=== PATIENT | female | born 2000 | race Hispanic/Latino ===

== ENCOUNTER 2024-06-17 12:34 | Inpatient (IN) | payer OTHER, SELFPAY ==
[2024-06-17 13:15] VITALS: BMI 26.2
[2024-06-17] MEDS ORDERED: Carboprost 250 MCG/ML AMP IM PRN (15:11)
[2024-06-17] MEDS ORDERED: fentaNYL 50 mcg/mL 1 mL Vial SLOW IVP PRN (15:11)
[2024-06-17] MEDS ORDERED: Acetaminophen 500 MG TAB PO PRN (15:11)
[2024-06-17] MEDS ORDERED: Ondansetron PF 4 MG/2 ML Vial IVP PRN ×2 (15:11→17:51)
[2024-06-17] MEDS ORDERED: hydrALAZINE 20 MG/ML VIAL SLOW IVP PRN (15:11)
[2024-06-17] MEDS ORDERED: Promethazine HCl 25 MG/ML VIAL IM PRN ×2 (15:11→17:51)
[2024-06-17] MEDS ORDERED: Misoprostol 200 MCG TAB PR PRN (15:11)
[2024-06-17] MEDS ORDERED: Diphenoxylate HCl/Atropine Tablet PO PRN (15:11)
[2024-06-17] MEDS ORDERED: Methylergonovine 0.2 MG/ML VIAL IM PRN (15:11)
[2024-06-17] MEDS ORDERED: HYDROcodone/Acetaminophen 5/325 mg Tablet PO PRN (15:13)
[2024-06-17] MEDS ORDERED: Lidocaine 1% (PF) 30 ML VIAL SC PRN (15:13)
[2024-06-17] MEDS ORDERED: Oxytocin 30 units/NS 500 ML 500 ML IV SCH (15:15)
[2024-06-17] MEDS ORDERED: Lactated Ringer's 1,000 ML IV SCH (15:15)
[2024-06-17 15:50] LABS: Hematocrit 36.4 % (34.9-44.5); Hemoglobin 12.7 g/dL (12.0-15.5); Mean Corpuscular HGB CONC 34.9 g/dL (32.0-36.0); Mean Corpuscular Hemoglobin 30.9 pg (27.0-33.0); Mean Corpuscular Volume 88.6 fL (81.6-98.3); Mean Platelet Volume 11.8 fL (7.4-10.4); Platelet Count 213 10x3/uL (150-450); RBC Distribution Width 12.7 % (11.5-14.5); Red Blood Cell (RBC) Count 4.11 10x6/uL (3.90-5.03); White Blood Cell (WBC) Count 10.5 10x3/uL (3.5-10.5)
[2024-06-17 16:22] LABS: HBsAg Index 0.18 S/CO (0-0.99); Hep B Surf Ag - L&D Non-Reactive S/CO (NonReactive)
[2024-06-17 16:23] LABS: Syphilis Antibody Nonreactive (Nonreactive); Syphilis Antibody Index 0.06 S/CO (<1.00 Non-Reactive)
[2024-06-17] MEDS: fentaNYL/Ropivacaine Epidural 100 ML ONE (17:27)
[2024-06-17] MEDS ORDERED: ePHEDrine Sulfate 50 MG/10 ML VIAL SLOW IVP PRN (17:51)
[2024-06-17] MEDS ORDERED: Lactated Ringer's 500 ML IV PRN (17:51)
[2024-06-17] MEDS ORDERED: diphenhydrAMINE 50 MG/ML VIAL IVP PRN (17:51)
[2024-06-17] MEDS ORDERED: Naloxone HCl 0.4 mg/ml Vial IVP PRN ×2 (17:51)
[2024-06-17] MEDS ORDERED: Moisturizing Cream (Eucerin) 113 GM JAR TOP PRN (17:51)
[2024-06-17] MEDS ORDERED: fentaNYL 2 mcg/Ropivacaine 0.2% Epidural 100 ML CADD EPIDURAL SCH (18:00)
[2024-06-17] MEDS ORDERED: Communication Order-Pharmacy FS SCH (18:00)
[2024-06-18] MEDS: Ibuprofen 800 MG TAB PO PRN (00:21)
[2024-06-18] MEDS: Acetaminophen 325 MG TAB PO PRN (00:21)
[2024-06-18 00:44] LABS: Bilirubin Neg (Negative); Blood, Urine 50 (Negative); Glucose, Urine (Dipstick) Normal (Negative); Ketone, Urine Negative (Negative); Leukocyte Negative (Negative); Nitrite Negative (Negative); Protein, Urine (Dipstick) 15 mg/dl (Neg-Trace); Urobilinogen Normal mg/dL (Less than 2)
[2024-06-18] MEDS ORDERED: Promethazine HCl 25 MG/ML VIAL IM PRN (00:44)
[2024-06-18] MEDS ORDERED: Bisacodyl 10 MG SUPP PR PRN (00:44)
[2024-06-18] MEDS ORDERED: hydrALAZINE 20 MG/ML VIAL SLOW IVP PRN (00:44)
[2024-06-18] MEDS ORDERED: Milk Of Magnesia 30 ML UDCUP PO PRN (00:44)
[2024-06-18] MEDS ORDERED: Ondansetron PF 4 MG/2 ML Vial IVP PRN (00:44)
[2024-06-18] MEDS ORDERED: diphenhydrAMINE 25 MG CAP PO PRN (00:44)
[2024-06-18] MEDS ORDERED: Boostrix 0.5 ML (Tdap) VIAL (>/=7 yrs of age) IM ONE (00:44)
[2024-06-18] MEDS ORDERED: Benzocaine-Menthol 82.5 ML CAN TOP PRN (00:44)
[2024-06-18] MEDS ORDERED: Lanolin Ointment 7 GM TUBE TOP PRN (00:44)
[2024-06-18 00:51] LABS: Clarity Clear (Clear)
[2024-06-18 00:52] LABS: CAUTI Indications for Culture Fever or rigors; Squamous Epithelial None Seen HPF (0-3); WBC/HPF 0-3 HPF (0-3)
[2024-06-18 00:53] LABS: Bacteria/HPF None Seen HPF (None Seen)
[2024-06-18 00:54] LABS: Urine Culture Reflex No No
[2024-06-18] MEDS: Tranexamic Acid 1,000 MG/10 ML VIAL ONE (05:51)
[2024-06-18] MEDS: Ferrous Sulfate 325 MG TAB PO SCH (08:09)
[2024-06-18] MEDS: Ibuprofen 800 MG TAB PO SCH (08:55)
[2024-06-18] MEDS: Prenatal Vitamin 1 TAB PO SCH (08:56)
[2024-06-18] MEDS: Docusate 100 MG CAP PO SCH (08:56)
[2024-06-18] MEDS: HYDROcodone/Acetaminophen 5/325 mg Tablet PO PRN (20:10)
[2024-06-19 08:14] VITALS: BP 109/58; TEMP 98
== END 2024-06-19 14:15 | disposition home or self-care (01) | DRG 807 ==
LOC: CSHLD/OP 12:34 → CSHLD 15:21 → CSHPED 06-18 00:50
PROVIDERS: ADMIT Family Medicine; ATTEND Family Medicine
PROC: 10E0XZZ Delivery of Products of Conception, External Approach (ICD-10-PCS; principal; 2024-06-17)
PROC: 0UQGXZZ Repair Vagina, External Approach (ICD-10-PCS; 2024-06-17)
PROC: 10907ZC Drainage of Amniotic Fluid, Therapeutic from Products of Conception, Via Natural or Artificial Opening (ICD-10-PCS; 2024-06-17)
DX: O70.0 First degree perineal laceration during delivery (principal); Z37.0 Single live birth; Z3A.38 38 weeks gestation of pregnancy
CPT/HCPCS: 51702; 81001; 85027; 86780; 86850; 86900; 86901; 87086; 87340; 99285